=== PATIENT | female | born 2005 | race African-American/Black ===

== ENCOUNTER 2025-02-09 14:16 | Emergency (ER) | payer MEDICAID ==
[~2025-02-09] VITALS: Ht 162.6 cm; Wt 50.0 kg
[2025-02-09 14:23] VITALS: O2SAT 99
[2025-02-09 14:41] VITALS: BP 115/69; PULSE 96; RESP 14; TEMP 36.8; O2SAT 79
== END 2025-02-09 16:30 | disposition left against medical advice (07) ==
LOC: ER 14:16
DX: H92.01 Otalgia, right ear (principal); Z53.21 Procedure and treatment not carried out due to patient leaving prior to being seen by health care provider